=== PATIENT | male | born 2000 | race Hispanic/Latino ===

== ENCOUNTER 2020-02-06 23:18 | Emergency (ER) | payer MEDICAID, OTHER | END 2020-02-07 00:09 | disposition home or self-care (01) | LOC: EDH 23:18 | DX: F41.0 Panic disorder [episodic paroxysmal anxiety] (principal); F43.0 Acute stress reaction | CPT/HCPCS: 93005 ==

== ENCOUNTER 2020-02-07 02:58 | Emergency (ER) | payer SELFPAY ==
[2020-02-07] MEDS ORDERED: KETOROLAC TROMETHAMINE 60 MG/2 ML VIAL ONE (03:34)
== END 2020-02-07 04:02 | disposition home or self-care (01) ==
LOC: EDH 02:58
DX: S43.492A Other sprain of left shoulder joint, initial encounter (principal); F41.9 Anxiety disorder, unspecified; Z98.890 Other specified postprocedural states; Z90.49 Acquired absence of other specified parts of digestive tract; X58.XXXA Exposure to other specified factors, initial encounter; Y93.89 Activity, other specified; Y92.89 Other specified places as the place of occurrence of the external cause; Y99.8 Other external cause status
CPT/HCPCS: 96372; 99283; J1885